=== PATIENT | male | born 1975 | race Hispanic/Latino ===

== ENCOUNTER 2017-02-01 18:25 | Emergency (ER) | payer MEDICAID ==
[2017-02-01 18:45] VITALS: BP 113/65; PULSE 94; RESP 18; TEMP 97.9; O2SAT 97
--- NOTE | 2017-02-01 19:13 | ED PDOC ---
HPI: Back Time Seen by Provider: 02/01/17 18:42 Chief Complaint (Nursing): Back Pain Chief Complaint (Provider): Back Pain and wrist pain History Per: Patient Additional Complaint(s): pt fell from a ladder yesterday attempted to break his fall with right wrist. + pain to right wrist 7/10; lower back pain /10. Past Medical History Reviewed: Historical Data, Nursing Documentation, Vital Signs Vital Signs: Last Vital Signs Temp 97.9 F 02/01/17 18:43 Pulse 94 H 02/01/17 18:43 Resp 18 02/01/17 18:43 BP 113/65 02/01/17 18:43 Pulse Ox 97 02/01/17 18:43 - Surgical History Other surgeries: wrist Fxr - Family History Family History: States: Unknown Family Hx - Immunization History Hx Influenza Vaccination: Yes - Home Medications Home Medications: Ambulatory Orders Medication Instructions Recorded Ibuprofen [Motrin] 600 mg PO Q6 #20 tab 02/01/17 diaZEpam [Valium] 5 mg PO BID PRN #10 tab 02/01/17 Naproxen [Naprosyn] 1 tab PO BID PRN #25 tab 02/05/17 - Allergies Allergies/Adverse Reactions: Allergies Allergy/AdvReac Type Severity Reaction Status Date / Time No Known Allergies Allergy Verified 08/12/13 07:52 Review of Systems ROS Statement: Except As Marked, All Systems Reviewed And Found Negative Musculoskeletal: Positive for: Back Pain, Other (wrist pain) Physical Exam - Reviewed Nursing Documentation Reviewed: Yes Vital Signs Reviewed: Yes - Physical Exam Appears: Positive for: Well, Non-toxic, No Acute Distress Head Exam: Positive for: ATRAUMATIC, NORMAL INSPECTION, NORMOCEPHALIC Skin: Positive for: Normal Color, Warm, DRY Eye Exam: Positive for: EOMI, Normal appearance, PERRL ENT: Positive for: Normal ENT Inspection Neck: Positive for: Normal, Painless ROM Cardiovascular/Chest: Positive for: Regular Rate, Rhythm Respiratory: Positive for: CNT, Normal Breath Sounds Gastrointestinal/Abdominal: Positive for: Normal Exam, Bowel Sounds, Soft Back: Positive for: Normal Inspection, Other ((-) saddle anesthesia) Extremity: Positive for: Normal ROM Neurologic/Psych: Positive for: Alert, Oriented - ECG O2 Sat by Pulse Oximetry: 97 Medical Decision Making Medical Decision Making: U.Dip (-) blood 1 tab Percocet PO administered for pain LS Spine: Negative for acute fracture. Lytic foci visualized in at least L4 and the sacrum and iliac bones, uncertain etiology. Mild degenerative changes noted. Posterior disc bulging at L5-S1 greater than L4-L5. Correlate with history. Followup evaluation is recommended. MRI can aid in evaluation. Wrist XR: Chronic appearing deformity as above. Appearance similar to available prior study. MRI can aid in further evaluation as warranted. Disposition - Clinical Impression Clinical Impression: Back pain, Wrist pain - Patient ED Disposition Is Patient to be Admitted: No - Disposition Disposition: Routine/Home Disposition Time: 20:00 Condition: STABLE Prescriptions: diaZEpam [Valium] 5 mg PO BID PRN #10 tab PRN Reason: Pain, Moderate (4-7) Ibuprofen [Motrin] 600 mg PO Q6 #20 tab Instructions: Wrist Injury (ED), Back Pain (ED) Forms: [facility] ([place])
[2017-02-01] MEDS ORDERED: Oxycodone/Acetaminophen 5/325 mg Tab PO STA (19:34)
--- NOTE | 2017-02-01 21:16 | CT ---
EXAM: CT Lumbar Spine Without Intravenous Contrast CLINICAL HISTORY: 41 years old, male; Injury or trauma; Fall; Work related; Initial encounter; Laceration; Without foreign body; Injury date: Yesterday; Injury details: S/P falling from ladder; Patient HX: Rt wrist SX many yrs ago; Additional info: Pain S/P 6 ft fall TECHNIQUE: Axial computed tomography images of the lumbar spine without intravenous contrast. All CT scans at this facility use one or more dose reduction techniques, viz.: automated exposure control; ma/kV adjustment per patient size (including targeted exams where dose is matched to indication; i.e. head); or iterative reconstruction technique. Coronal and sagittal reformatted images were created and reviewed. COMPARISON: No relevant prior studies available. FINDINGS: No acute fracture are visualized. No subluxation. Mild degenerative changes noted. Posterior disc bulging at L5-S1 greater than L4-L5. Lytic foci visualized in at least L4 and the sacrum and iliac bones, uncertain etiology. Sclerotic focus in the left inferior pubic ramus may represent a bone island. Atherosclerosis. IMPRESSION: Negative for acute fracture. Lytic foci visualized in at least L4 and the sacrum and iliac bones, uncertain etiology. Mild degenerative changes noted. Posterior disc bulging at L5-S1 greater than L4-L5. Correlate with history. Followup evaluation is recommended. MRI can aid in evaluation.
[2017-02-01] MEDS ORDERED: Oxycodone/Acetaminophen 5/325 mg Tab ONE (21:38)
--- NOTE | 2017-02-01 21:41 | RAD ---
EXAM: XR Right Wrist Complete, 3 or More Views CLINICAL HISTORY: 41 years old, male; Pain and injury or trauma; Fall; Initial encounter; Blunt trauma (contusions or hematomas; Wrist; Right; Additional info: Pain S/P fall TECHNIQUE: Frontal, lateral and oblique views of the right wrist. COMPARISON: CR - DX-WRIST 3 VIEWS-RT 08/06/2012 10:48:24 PM FINDINGS: Significant deformity of the wrist with abnormal appearance to carpal bones as well as the bases of the 2nd through 5th metacarpals. Deformity of the distal radius. Disruption of all associated joint spaces. IMPRESSION: Chronic appearing deformity as above. Appearance similar to available prior study. MRI can aid in further evaluation as warranted.
== END 2017-02-01 22:00 | disposition home or self-care (01) ==
LOC: H.ER 18:25
DX: M54.5 Low back pain (principal); M25.531 Pain in right wrist; W19.XXXA Unspecified fall, initial encounter